=== PATIENT | female | born 1965 | race Caucasian/White ===

== ENCOUNTER 2017-01-25 16:56 | Emergency (ER) | payer OTHER ==
[2017-01-25 17:10] VITALS: BP 138/101; PULSE 70; TEMP 97.5; BMI 27.1
--- NOTE | 2017-01-25 18:33 | PDOC ---
History of Present Illness - General Chief Complaint: Chest Pain Stated Complaint: CHEST PAIN Time Seen by Provider: 01/25/17 18:23 Past History - Past Medical History Allergies/Adverse Reactions: Allergies Allergy/AdvReac Type Severity Reaction Status Date / Time No Known Allergies Allergy Verified 01/25/17 17:09 Thyroid Disease: Yes (hypo) - Psycho/Social/Smoking Cessation Hx Suicidal Ideation: No Smoking History: Never smoked Information on smoking cessation initiated: No Hx Alcohol Use: No Drug/Substance Use Hx: No Substance Use Type: None *Physical Exam - Vital Signs Last Vital Signs Temp Pulse Resp BP Pulse Ox 97.5 F L 70 18 138/101 98 01/25/17 17:09 01/25/17 17:09 01/25/17 17:09 01/25/17 17:09 01/25/17 17:09
[2017-01-25 19:01] LABS: BASOPHIL 0.7 % (0-2.0); EOSINOPHIL 3.2 % (0-4.5); MCH 29.5 pg (25.7-33.7); MCHC 33.1 g/dl (32.0-36.0); MEAN CELL VOLUME 89.2 fl (80-96); MEAN PLT VOLUME 8.8 fl (7.5-11.1); NEUTROPHILS 58.3 % (42.8-82.8); PLATELET COUNT 263 K/MM3 (134-434); RDW 13.7 % (11.6-15.6); WHITE BLOOD COUNT 7.7 K/mm3 (4.0-10.0)
[2017-01-25 19:37] LABS: ALBUMIN 4.1 g/dl (3.4-5.0); ANION GAP 8 (8-16); CALCIUM 9.2 mg/dL (8.5-10.1); CO2 29 mmol/L (21-32); GLUCOSE,RANDOM 91 mg/dL (74-106); SGOT/AST 18 U/L (15-37); SGPT/ALT 28 U/L (12-78)
[2017-01-25 19:40] LABS: ALK PHOS 113 U/L (45-117); BILIRUBIN,TOTAL 0.4 mg/dL (0.2-1.0); COCKROFT - GAULT 101.15; CREATININE 0.7 mg/dL (0.55-1.02); TOT PROT 7.6 g/dl (6.4-8.2)
[2017-01-25 19:42] LABS: TROPONIN I < 0.02 ng/ml (0.00-0.05)
--- NOTE | 2017-01-25 20:01 | PDOC ---
*Physical Exam - Vital Signs Last Vital Signs Temp Pulse Resp BP Pulse Ox 97.5 F L 70 18 138/101 98 01/25/17 17:09 01/25/17 17:09 01/25/17 17:09 01/25/17 17:09 01/25/17 17:09 ED Treatment Course - LABORATORY CBC & Chemistry Diagram: 01/25/17 18:40 01/25/17 18:40 - ADDITIONAL ORDERS Additional order review: Laboratory Results 01/25/17 01/25/17 18:41 18:40 Sodium 142 Potassium 4.0 Chloride 105 Carbon Dioxide 29 Anion Gap 8 BUN 14 Creatinine 0.7 Creat Clearance w eGFR > 60 Random Glucose 91 Calcium 9.2 Total Bilirubin 0.4 AST 18 ALT 28 Alkaline Phosphatase 113 Creatine Kinase 92 Troponin I < 0.02 Total Protein 7.6 Albumin 4.1 01/25/17 18:40 RBC 4.72 MCV 89.2 MCHC 33.1 RDW 13.7 MPV 8.8 Neutrophils % 58.3 Lymphocytes % 31.6 Monocytes % 6.2 Eosinophils % 3.2 Basophils % 0.7 - RADIOLOGY Radiology Studies Ordered: Category Date Time Status CHEST PA & LAT [RAD] Stat Radiology 01/25/17 18:51 Taken Medical Decision Making - Medical Decision Making 01/25/17 20:01 Pt left prior to my evaluation. I did not see the patient. *DC/Admit/Observation/Transfer Diagnosis at time of Disposition: [facility] - Discharge Dispostion Disposition: LEFT BEFORE [facility] - Referrals Referrals: Zacarias England MD [Primary Care Provider] -
--- NOTE | 2017-01-26 15:41 | EKG ---
Test Reason : Blood Pressure : / mmHG Vent. Rate : 070 BPM Atrial Rate : 070 BPM P-R Int : 126 ms QRS Dur : 084 ms QT Int : 442 ms P-R-T Axes : 051 029 032 degrees QTc Int : 477 ms POOR DATA QUALITY, INTERPRETATION MAY BE ADVERSELY AFFECTED NORMAL SINUS RHYTHM NONSPECIFIC ST ABNORMALITY ABNORMAL ECG NO PREVIOUS ECGS AVAILABLE Confirmed by EVERETT HE MD ([id number]) on 01/26/2017 3:40:39 PM Referred By: Confirmed By:EVERETT HE MD
== END 2017-01-25 19:50 | disposition left against medical advice (07) ==
LOC: JER 16:56
DX: Z53.21 Procedure and treatment not carried out due to patient leaving prior to being seen by health care provider (principal)
CPT/HCPCS: 36415; 71020-TC; 80053; 82550; 84484; 85025; 93005; 93010; 99284-25